=== PATIENT | male | born 1940 | race Native Hawaiian/Other Pacific Islander ===

== ENCOUNTER 2017-02-02 20:24 | Outpatient (CLI) | payer OTHER | END 2017-02-02 20:39 | disposition short-term general hospital (02) | LOC: AMB 20:24 | DX: R56.9 Unspecified convulsions (principal) ==

== ENCOUNTER 2017-02-07 15:32 | Outpatient (CLI) | payer OTHER | END 2017-02-07 15:53 | disposition short-term general hospital (02) | LOC: AMB 15:32 | DX: R56.9 Unspecified convulsions (principal); R11.2 Nausea with vomiting, unspecified; R10.84 Generalized abdominal pain | CPT/HCPCS: A0425; A0427 ==

== ENCOUNTER 2017-02-14 09:45 | Outpatient (CLI) | payer OTHER ==
[2017-02-14] MEDS ORDERED: TRAZ50TA36 PO (10:24)
[2017-02-14] MEDS ORDERED: NAMENDA XR28 MG OR (10:25)
[2017-02-14] MEDS ORDERED: ANTI-DIARRHEAL2 MG OR (10:26)
[2017-02-14] MEDS ORDERED: VENL37.54 PO (10:28)
[2017-02-14] MEDS ORDERED: PRAVACHOL80 MG PO (10:29)
[2017-02-14] MEDS ORDERED: TAMSULOSIN0.4 MG PO (10:30)
[2017-02-14] MEDS ORDERED: LAMICTAL200 MG OR (10:31)
[2017-02-14] MEDS ORDERED: NEURONTIN 100M100 MG OR (10:32)
[2017-02-14] MEDS ORDERED: MULTIVITAMIN OR (10:32)
[2017-02-14] MEDS ORDERED: REMERON SOLTAB30 MG OR (10:34)
[2017-02-14] MEDS ORDERED: DONEPEZIL HCL23 MG PO (10:34)
[2017-02-14] MEDS ORDERED: APAP325 MG OR (10:35)
[2017-02-14] MEDS ORDERED: ALOPHEN5 MG OR (10:36)
[2017-02-14] MEDS ORDERED: ASPIRIN 81 LOW81 MG PO (10:36)
[2017-02-14] MEDS ORDERED: LACTSYP31 PO (10:38)
[2017-02-14] MEDS ORDERED: AMLO2.5T PO (10:40)
[2017-02-14] MEDS ORDERED: IRON325 MG OR (10:41)
[2017-02-14] MEDS ORDERED: MYSOLINE50 MG OR (10:44)
[2017-02-14] MEDS ORDERED: SENNA LAX8.6 MG OR (10:44)
[2017-02-14] MEDS ORDERED: CARV12.5 PO (10:45)
[2017-02-14] MEDS ORDERED: ZANTAC 75 PO (10:46)
[2017-02-14] MEDS ORDERED: OXYBUTYNIN10 MG PO (10:46)
[2017-02-14] MEDS ORDERED: DIAZEPAM10 MG PO (11:20)
== END 2017-02-14 09:58 | disposition short-term general hospital (02) ==
LOC: AMB 09:45
DX: R51 Headache (principal); M54.89 Other dorsalgia; R41.82 Altered mental status, unspecified; W06.XXXA Fall from bed, initial encounter; Y92.092 Bedroom in other non-institutional residence as the place of occurrence of the external cause
CPT/HCPCS: A0425; A0427

== ENCOUNTER 2017-02-14 09:58 | Inpatient (IN) | payer OTHER ==
[2017-02-14] VITALS (11 sets, daily range): BP systolic 140–194; BP diastolic 90–126; TEMP 97.3–97.8; Ht 175.3 cm; Wt 64.9 kg
[~2017-02-14] VITALS: Ht 175.3 cm; Wt 64.9 kg
[2017-02-14] MEDS ORDERED: TRAZ50TA36 PO (10:24)
[2017-02-14] MEDS ORDERED: NAMENDA XR28 MG OR (10:25)
[2017-02-14] MEDS ORDERED: ANTI-DIARRHEAL2 MG OR (10:26)
[2017-02-14] MEDS ORDERED: VENL37.54 PO (10:28)
[2017-02-14] MEDS ORDERED: PRAVACHOL80 MG PO (10:29)
[2017-02-14] MEDS ORDERED: TAMSULOSIN0.4 MG PO (10:30)
[2017-02-14] MEDS ORDERED: LAMICTAL200 MG OR (10:31)
[2017-02-14] MEDS ORDERED: MULTIVITAMIN OR (10:32)
[2017-02-14] MEDS ORDERED: NEURONTIN 100M100 MG OR (10:32)
[2017-02-14] MEDS ORDERED: REMERON SOLTAB30 MG OR (10:34)
[2017-02-14] MEDS ORDERED: DONEPEZIL HCL23 MG PO (10:34)
[2017-02-14] MEDS ORDERED: APAP325 MG OR (10:35)
[2017-02-14] MEDS ORDERED: ASPIRIN 81 LOW81 MG PO (10:36)
[2017-02-14] MEDS ORDERED: ALOPHEN5 MG OR (10:36)
[2017-02-14] MEDS ORDERED: LACTSYP31 PO (10:38)
[2017-02-14] MEDS ORDERED: AMLO2.5T PO (10:40)
[2017-02-14] MEDS ORDERED: IRON325 MG OR (10:41)
[2017-02-14] MEDS ORDERED: SENNA LAX8.6 MG OR (10:44)
[2017-02-14] MEDS ORDERED: MYSOLINE50 MG OR (10:44)
[2017-02-14] MEDS ORDERED: CARV12.5 PO (10:45)
[2017-02-14] MEDS ORDERED: OXYBUTYNIN10 MG PO (10:46)
[2017-02-14] MEDS ORDERED: ZANTAC 75 PO (10:46)
[2017-02-14] MEDS ORDERED: DIAZEPAM10 MG PO (11:20)
[2017-02-14 12:18] LABS: PLATELET COUNT 396 K/uL (142-355); POTASSIUM 3.4 mmol/L (3.6-5.2)
[2017-02-15] VITALS: BP 164/77; TEMP 97.5
[2017-02-15 03:39] LABS: PLATELET COUNT 332 K/uL (142-355)
[2017-02-15 04:00] VITALS: BP 173/98; TEMP 97.6
[2017-02-15 04:09] LABS: POTASSIUM 3.1 mmol/L (3.6-5.2); SODIUM 135 mmol/L (136-145)
[2017-02-15 08:00] VITALS: BP 135/78; TEMP 98.6
[2017-02-15 12:00] VITALS: BP 130/95; TEMP 98.6
[2017-02-15 16:00] VITALS: BP 132/90; TEMP 98.4
[2017-02-15 20:27] VITALS: BP 157/96; TEMP 98.5
[2017-02-16] VITALS (11 sets, daily range): BP systolic 114–167; BP diastolic 65–90; TEMP 97.3–98.6
[2017-02-16 05:16] LABS: PLATELET COUNT 299 K/uL (142-355)
[2017-02-16 07:05] LABS: POTASSIUM 3.6 mmol/L (3.6-5.2)
[2017-02-17] VITALS: BP 134/87; TEMP 98.1
[2017-02-17 05:49] VITALS: BP 160/98; TEMP 97.6
[2017-02-17 06:34] LABS: PLATELET COUNT 314 K/uL (142-355)
[2017-02-17 06:36] LABS: POTASSIUM 4.2 mmol/L (3.6-5.2)
[2017-02-17 08:20] VITALS: BP 126/83; TEMP 97.6
[2017-02-17 12:00] VITALS: BP 153/85; TEMP 98.7
[2017-02-17 16:00] VITALS: BP 178/98; TEMP 98.8
[2017-02-17 20:00] VITALS: BP 149/92; TEMP 97.9
[2017-02-18] VITALS: BP 141/83; TEMP 99
[2017-02-18 04:00] VITALS: BP 141/83; BP 155/99; TEMP 98.1; TEMP 98.4
[2017-02-18 04:58] LABS: PLATELET COUNT 337 K/uL (142-355)
[2017-02-18 05:09] LABS: POTASSIUM 3.8 mmol/L (3.6-5.2)
[2017-02-18 07:00] VITALS: BP 127/76; TEMP 97.7
[2017-02-18 12:00] VITALS: BP 114/70; TEMP 97.5
== END 2017-02-18 18:20 | disposition home or self-care (01) | DRG 57 ==
LOC: ED 09:58 → MED/SURG 13:30
PROVIDERS: ADMIT Family Medicine
PROC: 0DH63UZ Insertion of Feeding Device into Stomach, Percutaneous Approach (ICD-10-PCS; principal; 2017-02-16)
DX: G31.83 Neurocognitive disorder with Lewy bodies (principal); E46 Unspecified protein-calorie malnutrition; I10 Essential (primary) hypertension; E86.0 Dehydration; K59.09 Other constipation; F02.80 Dementia in other diseases classified elsewhere, unspecified severity, without behavioral disturbance, psychotic disturbance, mood disturbance, and anxiety; R13.12 Dysphagia, oropharyngeal phase; R63.4 Abnormal weight loss; I48.0 Paroxysmal atrial fibrillation; E11.42 Type 2 diabetes mellitus with diabetic polyneuropathy
CPT/HCPCS: 36415; 74022; 80048; 80053; 81000; 82140; 82150; 82550; 82947; 82948; 83690; 83735; 84484; 85027; 87040; 93005; 96360; 96365; 96366; 96372; 99253; 99284; J1160; J1815; J2001; J2405; J2704; J2765; J3010; J3411; J3490; S0028

== ENCOUNTER 2017-02-19 12:16 | Outpatient (CLI) | payer OTHER ==
[~2017-02-19 12:16] MED LIST: ALOPHEN5 MG OR; AMLO2.5T PO; ANTI-DIARRHEAL2 MG OR; APAP325 MG OR; ASPIRIN 81 LOW81 MG PO; CARV12.5 PO; DIAZEPAM10 MG PO; DONEPEZIL HCL23 MG PO; IRON325 MG OR; LACTSYP31 PO; LAMICTAL200 MG OR; MULTIVITAMIN OR; MYSOLINE50 MG OR; NAMENDA XR28 MG OR; NEURONTIN 100M100 MG OR; OXYBUTYNIN10 MG PO; PRAVACHOL80 MG PO; REMERON SOLTAB30 MG OR; SENNA LAX8.6 MG OR; TAMSULOSIN0.4 MG PO; TRAZ50TA36 PO; VENL37.54 PO; ZANTAC 75 PO
== END 2017-02-19 12:39 | disposition short-term general hospital (02) ==
LOC: AMB 12:16
DX: R10.84 Generalized abdominal pain (principal); T85.848A Pain due to other internal prosthetic devices, implants and grafts, initial encounter; K94.29 Other complications of gastrostomy; I48.91 Unspecified atrial fibrillation
CPT/HCPCS: A0425; A0427